=== PATIENT | female | born 1995 | race Two or more races ===

== ENCOUNTER 2023-10-09 09:25 | Day surgery (SDC) | payer OTHER ==
[2023-10-08 16:02] LABS: PH,URINE 6.5 (5.0-8.0); URINE APPEARANCE Clear; URINE BILIRRUBIN Negative (NEGATIVE); URINE BLOOD Negative; URINE COLOR Yellow; URINE GLUCOSE Negative (NEGATIVE); URINE LEUKOCYTE Small; URINE NITRATE Negative; URINE PROTEIN Negative (NEGATIVE); URINE UROBILINOGEN 0.2 E.U./dl
[2023-10-08 16:03] LABS: HEMATOCRIT 35.8 % (36.0-45.00); HEMOGLOBIN 11.6 g/dL (12.0-15.00); MEAN CORPUSCULAR HEMOGLOBIN 24.2 pg (27.00-32.0); MEAN CORPUSCULAR HGB CONC 32.2 g/dl (32.0-36.0); PLATELET COUNT 407 K/uL (150-450); RED BLOOD COUNT 4.78 M/uL (4.00-6.00); RED CELL DISTRIBUTION WIDTH 15.7 % (11.5-14.5)
[2023-10-08 16:06] LABS: URINE BACTERIA 962.4 uL (0.0-1933); URINE EPITHELIAL CELLS 7.5 uL (0.0-38.8); URINE RBC 10.7 uL (0.0-20.8); URINE WBC 40.6 uL (0.0-23.2)
[2023-10-08 16:20] LABS: INR 0.97; PARTIAL THROMBOPLASTIN TIME 30.8 SECONDS (22.0-34.0); PROTHROMBIN TIME 10.2 SECONDS (9.0-11.5)
== END 2023-10-09 21:20 | disposition home or self-care (01) ==
LOC: CIR.AMB 09:25
PROVIDERS: Obstetrics & Gynecology; ATTEND Obstetrics & Gynecology
DX: O02.1 Missed abortion (principal); O72.2 Delayed and secondary postpartum hemorrhage

== ENCOUNTER → 2025-09-09 07:32 | Outpatient (CLI) | payer OTHER | END | disposition home or self-care (01) | LOC: PRENATAL 07:32 | PROVIDERS: ATTEND Obstetrics & Gynecology Maternal & Fetal Medicine | DX: O26.849 Uterine size-date discrepancy, unspecified trimester (principal); O36.8130 Decreased fetal movements, third trimester, not applicable or unspecified; O10.019 Pre-existing essential hypertension complicating pregnancy, unspecified trimester; O99.280 Endocrine, nutritional and metabolic diseases complicating pregnancy, unspecified trimester; O99.210 Obesity complicating pregnancy, unspecified trimester; Z3A.37 37 weeks gestation of pregnancy ==

== ENCOUNTER 2025-09-22 04:31 | Inpatient (IN) | payer OTHER ==
[~2025-09-22] VITALS: Ht 165.1 cm; Wt 125.6 kg
[2025-09-22] VITALS (11 sets, daily range): BP systolic 117–148; BP diastolic 47–75; O2SAT 100
[2025-09-22] MEDS ORDERED: AMPICILLIN SODIUM 2,000 MG VIAL ONE (05:12)
[2025-09-22] MEDS ORDERED: RINGERS SOLUTION,LACTATED 1,000 ML IV SCH (05:45)
[2025-09-22] MEDS ORDERED: AMPICILLIN SODIUM 2,000 MG VIAL IV ONE (05:45)
[2025-09-22 06:51] LABS: BASO % 0.3 % (0.1-1.2); EOS # 0.10 (0.04-0.54); EOS % 0.9 % (0.7-7.0); LYMPH # 1.67 (1.18-3.74); LYMPH % 14.5 % (19.3-53.1); MEAN PLATELET VOLUME 10.60 fl (9.4-12.4); MONO # 1.30 (0.24-0.82); MONO % 11.3 % (4.7-12.5); NEUT # 8.36 (1.56-6.13); NEUT % 72.5 % (34.0-71.1); RED CELL DISTRIBUTION WIDTH 13.7 % (11.6-14.4); URINE APPEARANCE Clear; URINE BILIRRUBIN Negative (NEGATIVE); URINE BLOOD Negative; URINE COLOR Yellow; URINE GLUCOSE Negative (NEGATIVE); URINE KETONE Trace (NEGATIVE); URINE LEUKOCYTE Trace; URINE NITRATE Negative; URINE PROTEIN Trace (NEGATIVE); URINE UROBILINOGEN 0.2 E.U./dl
[2025-09-22 06:52] LABS: URINE BACTERIA 1426.6 uL (0.0-1933); URINE EPITHELIAL CELLS 29.3 uL (0.0-38.8); URINE RBC 10.8 uL (0.0-20.8); URINE WBC 12.4 uL (0.0-23.2)
[2025-09-22] MEDS ORDERED: LABETALOL HCL100 MG PO (06:55)
[2025-09-22] MEDS ORDERED: VAZALORE81 MG PO (06:56)
[2025-09-22] MEDS ORDERED: PRENATAL + DHA1 EAC1 PO (06:56)
[2025-09-22 07:02] LABS: URINE CAST 0.14 uL (0.0-1.40)
[2025-09-22 07:10] LABS: INR 0.98
[2025-09-22] MEDS ORDERED: MISOPROSTOL 25 MCG TABLET VAG STA (08:07)
[2025-09-22] MEDS ORDERED: AMPICILLIN SODIUM 1,000 MG VIAL IV SCH (09:00)
[2025-09-22] MEDS ORDERED: OXYTOCIN 20 UNITS/500ML RL PIGGYBAG IV SCH ×2 (14:00→15:45)
[2025-09-22] MEDS ORDERED: OXYTOCIN 1,000 ML IV SCH (19:00)
[2025-09-22] MEDS ORDERED: ACETAMINOPHEN 500 MG GEL..CAP PO PRN (19:00)
[2025-09-22] MEDS ORDERED: CHLORHEXIDINE GLUCONATE 120 ML BOTTLE TOP ONE (19:00)
[2025-09-22] MEDS ORDERED: LIDOCAINE HCL 1% 10ML VIAL PERCUT ONE (19:15)
[2025-09-22] MEDS ORDERED: ERYTHROMYCIN BASE OPHT 1GM EACH TUBE OP ONE (19:15)
[2025-09-22 23:26] LABS: BASO % 0.2 % (0.1-1.2); EOS # 0.00 (0.04-0.54); EOS % 0.0 % (0.7-7.0); LYMPH # 1.08 (1.18-3.74); LYMPH % 7.2 % (19.3-53.1); MEAN PLATELET VOLUME 10.40 fl (9.4-12.4); MONO # 0.78 (0.24-0.82); MONO % 5.2 % (4.7-12.5); NEUT # 13.04 (1.56-6.13); NEUT % 87.1 % (34.0-71.1); RED CELL DISTRIBUTION WIDTH 13.7 % (11.6-14.4)
[2025-09-23 03:50] VITALS: BP 123/58
[2025-09-23 07:13] VITALS: BP 116/62
[2025-09-23] MEDS ORDERED: PNV,CALCIUM 72/IRON/FOLIC ACID 1 TAB TABLET PO SCH (09:00)
[2025-09-23 11:09] VITALS: BP 111/60
[2025-09-23 15:40] VITALS: BP 134/67
[2025-09-23 23:20] VITALS: BP 113/63
[2025-09-24 03:23] VITALS: BP 123/77
[2025-09-24 07:28] VITALS: BP 120/80
[2025-09-24 11:25] VITALS: BP 127/71
[2025-09-24] MEDS ORDERED: PRENATE ELITE1 EAC1 PO (13:30)
[2025-09-24] MEDS ORDERED: LABETALOL HCL100 MG PO (13:30)
== END 2025-09-24 14:45 | disposition home or self-care (01) | DRG 807 ==
LOC: LDR 04:31 → OB/GYN 20:25 → LDR 20:27
PROVIDERS: ADMIT Obstetrics & Gynecology; ATTEND Obstetrics & Gynecology
PROC: 10E0XZZ Delivery of Products of Conception, External Approach (ICD-10-PCS; principal; 2025-09-22)
PROC: 0HQ9XZZ Repair Perineum Skin, External Approach (ICD-10-PCS; 2025-09-22)
PROC: 3E033VJ Introduction of Other Hormone into Peripheral Vein, Percutaneous Approach (ICD-10-PCS; 2025-09-22)
PROC: 3E0P7VZ Introduction of Hormone into Female Reproductive, Via Natural or Artificial Opening (ICD-10-PCS; 2025-09-22)
PROC: 4A1HXCZ Monitoring of Products of Conception, Cardiac Rate, External Approach (ICD-10-PCS; 2025-09-22)
DX: O70.0 First degree perineal laceration during delivery (principal); O99.824 Streptococcus B carrier state complicating childbirth; Z37.0 Single live birth; Z3A.38 38 weeks gestation of pregnancy